=== PATIENT | female | born 1960 | race Caucasian/White ===

== ENCOUNTER 2019-11-30 13:45 | Outpatient (CLI) | payer OTHER, BC ==
--- NOTE | 2019-11-30 16:54 | XRAY Report ---
Reason: RIGHT KNEE CONTUSION Procedure Date: 11/30/2019 Accession Number: [id number] / [id number] Procedure: WCP - Knee 3 View RT CPT Code: Final Report FULL RESULT: EXAM: RIGHT KNEE RADIOGRAPHY EXAM DATE: 11/30/2019 02:03 PM. CLINICAL HISTORY: RIGHT KNEE CONTUSION. COMPARISON: None. TECHNIQUE: 3 views. FINDINGS: Bones: Normal. No fractures or bone lesions. Joints: Normal. No effusion. No subluxations. Soft Tissues: Normal. No soft tissue swelling. IMPRESSION: Normal right knee radiography. [facility]
== END 2019-11-30 23:59 | disposition home or self-care (01) ==
LOC: DI.WCP 13:45
PROVIDERS: ATTEND Physician Assistant
DX: S80.01XA Contusion of right knee, initial encounter (principal)